=== PATIENT | male | born 1935 | race Two or more races ===

== ENCOUNTER 2017-07-20 11:30 | Inpatient (IN) | payer OTHER ==
[~2017-07-20] VITALS: Ht 162.6 cm; Wt 74.4 kg
[2017-07-20] MEDS ORDERED: SYNTHROID50 MCG PO (12:35)
[2017-07-20] MEDS ORDERED: LISINOPRIL10 MG PO (12:36)
[2017-07-20] MEDS ORDERED: NORVASC2.5 MG PO (12:36)
[2017-07-20] MEDS ORDERED: TRICOR PO (12:37)
[2017-07-20] MEDS ORDERED: PRAVASTATIN SOD20 MG PO (12:37)
[2017-07-27] MEDS ORDERED: GABAPENTIN800 MG PO (10:21)
[2017-07-27] MEDS ORDERED: DOCUSATE SODIU100 MG PO (10:21)
[2017-07-27] MEDS ORDERED: AMOX-CLAV 875-1 EACH PO (10:22)
[2017-07-27] MEDS ORDERED: CLONAZEPAM1 MG PO (10:23)
[2017-07-27] MEDS ORDERED: PERCOCET 5-3251 EACH PO (10:23)
== END 2017-07-28 15:41 | DRG 454 ==
LOC: O/R 07-27 05:15 → PED 07-27 05:15 → SURG 07-27 10:00 → PED 07-27 11:15 → SURG 07-27 11:30 → PED 07-28 15:41
PROVIDERS: Orthopaedic Surgery Orthopaedic Surgery of the Spine
PROC: 0SG0071 Fusion of Lumbar Vertebral Joint with Autologous Tissue Substitute, Posterior Approach, Posterior Column, Open Approach (ICD-10-PCS; 2017-07-27)
PROC: 0ST20ZZ Resection of Lumbar Vertebral Disc, Open Approach (ICD-10-PCS; 2017-07-27)
PROC: 0SG00AJ Fusion of Lumbar Vertebral Joint with Interbody Fusion Device, Posterior Approach, Anterior Column, Open Approach (ICD-10-PCS; 2017-07-27)
PROC: 07DS3ZZ Extraction of Vertebral Bone Marrow, Percutaneous Approach (ICD-10-PCS; 2017-07-27)
PROC: 0SG00A0 Fusion of Lumbar Vertebral Joint with Interbody Fusion Device, Anterior Approach, Anterior Column, Open Approach (ICD-10-PCS; principal; 2017-07-27 10:00)
DX: M48.061 Spinal stenosis, lumbar region without neurogenic claudication (principal); M51.06 Intervertebral disc disorders with myelopathy, lumbar region; M47.16 Other spondylosis with myelopathy, lumbar region; M43.16 Spondylolisthesis, lumbar region; I10 Essential (primary) hypertension